=== PATIENT | female | born 1995 | race Caucasian/White ===

== ENCOUNTER 2016-08-03 21:16 | Emergency (ER) | payer OTHER ==
--- NOTE | 2016-08-03 22:16 | ED CLINICAL REPORT ---
Clinical Report - Physicians/Mid Levels [facility] [address] [place] [address] 08/03/2016 21:17 Patient: ANNA LARSEN Time Seen: 2156; initial patient contact, initial documentation, patient care assumed. Arrived- By private vehicle. Historian- patient and mother. HISTORY OF PRESENT ILLNESS Treated in emergency department (about 4 days ago). Chief Complaint: WOUND RECHECK. The patient has experienced pain since the procedure was performed. No antibiotics given or prescription given. 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 off skin off her finger, she went [facility], she admits to not reading her dc papers so she left her splint and bandage on til yesterday, and never did any wound care, washed it today, and put bandage and splint back on, but they only gave her enough bandages for 1 day, so she didn't do anything else, now she is worried that it might be infected or it is not healing, but when she took bandage off it looks lot better because she took pics of it, and hole that was there looks filled in and looks like skin is back, L middle finger, pt is R handed, denies any new injury/trauma, pt would like a few pain pills because it does still hurt). REVIEW OF SYSTEMS All systems otherwise negative, except as recorded above. PAST HISTORY See nurses notes. PROBLEMS: Vaginitis. Gastroesophageal Reflux Disease. Paronychia. Acute Lymphangitis. --21:25 Candi Mendez. Tetanus immunization status is up-to-date. SOCIAL HISTORY Never smoker. No alcohol use. No recent travel. Is a local resident. FAMILY HISTORY No significant family medical history. ADDITIONAL NOTES The nursing notes have been reviewed with agreement regarding the chief complaint, HPI, ROS, PMH and patient medications and allergies. PHYSICAL EXAM Vital Signs: 08/03/2016 21:28 BP: 109/84. HR: 83. RR: 15. O2 saturation: 99%. Temp: 97.6 F. Have been reviewed as normal and appear to be correct. Appearance: Alert. Oriented X3. No acute distress. Eyes: Pupils equal, round and reactive to light. EOM intact. Skin: Healing wound. No infection. (superficial skin avulsion to side and pad of L hand 3rd digit, no bleeding, no swelling, no erythema or streaking, no dc, healing wound). Extremities: Normal inspection. Extremities atraumatic. No lower extremity edema. Neuro, Vascular and Tendons: Sensation intact. No tendon injury. No vascular compromise. Neuro: Oriented X 3. No motor deficit. No sensory deficit. PROGRESS AND PROCEDURES Patient and mother counseled in person regarding the patient's stable condition and diagnosis. Differential Diagnosis: Other possible considerations: infected wound, skin avulsion. Above considerations are based on history and physical exam. Differential diagnosis was discussed with patient. Disposition: Discharged home in good and improved condition (22:15). Condition: good and stable. CLINICAL IMPRESSION Wound check INSTRUCTIONS Protect wound and keep wound area clean. Soak in warm soapy water twice daily. Apply neosporin twice daily. Warnings: GENERAL WARNINGS: Return or contact your physician immediately if your condition worsens or changes unexpectedly, if not improving as expected, or if other problems arise. Specifically return if problem worsens. Prescription Medications: Ultram 50 mg: take 1 orally every 6 hours as needed for pain. Dispense five (5). No refills. Follow-up: Follow up with your doctor in about three days as needed and for wound check. Call for an appointment. Summary of care provided to patient and family. Understanding of the discharge instructions verbalized by patient and parent. (Electronically signed by Janae Stauffer A.R.N.P. 08/03/2016 22:26)
--- NOTE | 2016-08-03 22:16 | ED ORDER SUMMARY ---
..... Patient: ANNA LARSEN OrderSheet [facility] VisitID: [id number] [address] [place] [address] 21y, F Registration Date/Time: 08/03/2016 ORDER SHEET Weight: 117.9 kg (stated) Allergies: None GENERAL ORDERS: Irrigate Wounds (wash wound please) (22:10 08/03/2016 Yaakov A.R.N.P.) (22:17 [facility]) MEDICATION ORDERS: IV FLUIDS: ORDER SHEET NOTES: [Electronically signed by Janae StaufferRLisaN.PLisa (22:26 08/03/2016)] [Electronically signed by Candi Mendez (22:28 08/03/2016)] [Electronically locked/signed by Candi Mendez (22:28 08/03/2016)]
--- NOTE | 2016-08-03 22:16 | ED ORDER SUMMARY ---
..... Patient: ANNA LARSEN OrderSheet [facility] VisitID: [id number] [address] [place] [address] 21y, F Registration Date/Time: 08/03/2016 ORDER SHEET Weight: 117.9 kg (stated) Allergies: None GENERAL ORDERS: Irrigate Wounds (wash wound please) (22:10 08/03/2016 Yaakov A.R.N.P.) (22:17 [facility]) MEDICATION ORDERS: IV FLUIDS: ORDER SHEET NOTES: [Electronically signed by Janae StaufferRLisaN.PLisa (22:26 08/03/2016)] [Electronically signed by Candi Mendez (22:28 08/03/2016)] [Electronically locked/signed by Candi Mendez (22:28 08/03/2016)]
--- NOTE | 2016-08-03 22:16 | ED CLINICAL REPORT ---
Clinical Report - Physicians/Mid Levels [facility] [address] [place] [address] 08/03/2016 21:17 Patient: ANNA LARSEN Time Seen: 2156; initial patient contact, initial documentation, patient care assumed. Arrived- By private vehicle. Historian- patient and mother. HISTORY OF PRESENT ILLNESS Treated in emergency department (about 4 days ago). Chief Complaint: WOUND RECHECK. The patient has experienced pain since the procedure was performed. No antibiotics given or prescription given. 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, she went [facility], she admits to not reading her dc papers so she left her splint and bandage on til yesterday, and never did any wound care, washed it today, and put bandage and splint back on, but they only gave her enough bandages for 1 day, so she didn't do anything else, now she is worried that it might be infected or it is not healing, but when she took bandage off it looks lot better because she took pics of it, and hole that was there looks filled in and looks like skin is back, L middle finger, pt is R handed, denies any new injury/trauma, pt would like a few pain pills because it does still hurt). REVIEW OF SYSTEMS All systems otherwise negative, except as recorded above. PAST HISTORY See nurses notes. PROBLEMS: Vaginitis. Gastroesophageal Reflux Disease. Paronychia. Acute Lymphangitis. --21:25 Candi Mendez. Tetanus immunization status is up-to-date. SOCIAL HISTORY Never smoker. No alcohol use. No recent travel. Is a local resident. FAMILY HISTORY No significant family medical history. ADDITIONAL NOTES The nursing notes have been reviewed with agreement regarding the chief complaint, HPI, ROS, PMH and patient medications and allergies. PHYSICAL EXAM Vital Signs: 08/03/2016 21:28 BP: 109/84. HR: 83. RR: 15. O2 saturation: 99%. Temp: 97.6 F. Have been reviewed as normal and appear to be correct. Appearance: Alert. Oriented X3. No acute distress. Eyes: Pupils equal, round and reactive to light. EOM intact. Skin: Healing wound. No infection. (superficial skin avulsion to side and pad of L hand 3rd digit, no bleeding, no swelling, no erythema or streaking, no dc, healing wound). Extremities: Normal inspection. Extremities atraumatic. No lower extremity edema. Neuro, Vascular and Tendons: Sensation intact. No tendon injury. No vascular compromise. Neuro: Oriented X 3. No motor deficit. No sensory deficit. PROGRESS AND PROCEDURES Patient and mother counseled in person regarding the patient's stable condition and diagnosis. Differential Diagnosis: Other possible considerations: infected wound, skin avulsion. Above considerations are based on history and physical exam. Differential diagnosis was discussed with patient. Disposition: Discharged home in good and improved condition (22:15). Condition: good and stable. CLINICAL IMPRESSION Wound check INSTRUCTIONS Protect wound and keep wound area clean. Soak in warm soapy water twice daily. Apply neosporin twice daily. Warnings: GENERAL WARNINGS: Return or contact your physician immediately if your condition worsens or changes unexpectedly, if not improving as expected, or if other problems arise. Specifically return if problem worsens. Prescription Medications: Ultram 50 mg: take 1 orally every 6 hours as needed for pain. Dispense five (5). No refills. Follow-up: Follow up with your doctor in about three days as needed and for wound check. Call for an appointment. Summary of care provided to patient and family. Understanding of the discharge instructions verbalized by patient and parent. (Electronically signed by Janae Stauffer A.R.N.P. 08/03/2016 22:26)
--- NOTE | 2016-08-03 22:16 | ED NURSING NOTES ---
Clinical Report - Nurses [facility] [place] [address] [place] [address] 08/03/2016 21:17 [id number] Triage time 21:Aug 03 2016. Acuity: LEVEL 5. Chief Complaint: INJURY TO LEFT HAND. 21:08/03/16. Alert. No acute distress. ( At worst 9/10). SEPSIS SCREEN: Sepsis Screen. Negative (no infection suspected/documented). AGA COMA SCORE: Aga Coma Scale: 15- eyes open spontaneously (4); best verbal response- oriented x 4 (5); best motor response- obeys commands (6). --21:28 Candi Mendez 21:28 08/03/16. BP: 109/84. HR: 83. RR: 15. O2 saturation: 99%. Temp: 97.6 F. Pain level now 3/10. --21:28 Candi Mendez 21:29 08/03/16. --21:29 Candi Mendez. Weight: 117.9 kg stated. Height/Length: 64 inches Per Patient. BMI: 44.6. --21:26 Candi Mendez. Medications None. --21:25 Candi Mendez. Allergies None. --21:25 Candi Mendez. History Arrived by private vehicle. Historian: patient. No primary care physician. This occurred (Sunday night). Occurred at work. ( Patient states that she cut a chunk out of her hand on Sunday. Reports that there is still bleeding and severe pain. Pt states that she was seen at [facility] on Sunday and is concerned for infection because it is "hot" and she states that she didn't get any antibiotics. Dressing has been changed once. Pt reports conflicting information between dc paperwork and what the doctor had told her.). No neck pain, weakness or numbness. 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 Took Tylenol. PAST MEDICAL HX: No history of diabetes mellitus, hypertension, heart disease or lung disease. Tetanus status: up-to-date. Last normal menstrual period was 3 weeks ago. SOCIAL HX: Never smoker. No alcohol use or drug use. FALL RISK ASSESSMENT: Fall risk assessment completed. No fall risk identified. NUTRITIONAL RISK ASSESSMENT: The nutritional risk assessment revealed no deficiencies. FUNCTIONAL ASSESSMENT: Functional assessment: no impairments noted. LEARNING NEEDS ASSESSMENT: The learning needs assessment revealed no barriers. SKIN INTEGRITY ASSESSMENT: Skin integrity risk assessment completed. No skin integrity risk identified. --:28 Candi Mendez Accompanied by mother. --:29 Candi Mendez. PROBLEMS: Vaginitis. Gastroesophageal Reflux Disease. Paronychia. Acute Lymphangitis. --:25 Candi Mendez. Assessment The patient states feels the same. --: Candi Mendez. Interventions ID band on patient. --: Candi Mendez. PHYSICAL ASSESSMENT :08/03/16. Ambulatory to room. GENERAL / NEURO / PSYCH: Oriented X 4. Alert. Appears in no acute distress. EXTREMITIES: Capillary refill is less than 2 seconds in the extremities. Extremity pulses are within normal limits. Extremities exhibit normal ROM. Neuro-vascular status intact to the extremity. Tip of left middle finger: laceration. SKIN: Skin intact. Skin is warm and dry. --: Candi Mendez. NURSING PROGRESS NOTES :08/03/16. The plan of care for this patient has been created. Extremity elevated. Reassurance given. Two patient identifiers checked. Call light placed in reach. Side rails up x 1. Bed placed in lowest position. Brakes of bed on. Patient ready for evaluation- chart flagged and ED physician and ORDER CHECKER notified. --: Candi Mendez. DISPOSITION / DISCHARGE Departure time: 22:15 Aug 03 2016. Condition at departure: improved. The goals identified in the patient's plan of care were met. No learning barriers present. Discharge instructions provided and reviewed with the patient and parent. Reviewed warnings (Patient verbalized awareness of warning s/sx listed in dc paperwork.). Reviewed medication(s) (Ultram). Treatments reviewed. Reviewed referrals. Patient verbalized understanding. Written instructions provided in Armenian. The patient was discharged by the nurse practitioner. She was discharged home and accompanied by parent. She left the Emergency Department ambulatory and via private vehicle. Parent driving. FALL RISK ASSESSMENT: Fall risk assessment completed. No fall risk identified. --:26 Candi Mendez 22:17 08/03/16. BP: deferred. HR: deferred. RR: deferred. O2 saturation: deferred. Temp: deferred. Pain level now deferred. --:26 Candi Mendez. Locked/Released at 08/03/2016 22:28 by Candi Mendez,
--- NOTE | 2016-08-03 22:16 | ED NURSING NOTES ---
Clinical Report - Nurses [facility] [place] [address] [address] 08/03/2016 21:17 [id number] Triage time 21:Aug 03 2016. Acuity: LEVEL 5. Chief Complaint: INJURY TO LEFT HAND. 21:08/03/16. Alert. No acute distress. ( At worst 9/10). SEPSIS SCREEN: Sepsis Screen. Negative (no infection suspected/documented). AGA COMA SCORE: Aga Coma Scale: 15- eyes open spontaneously (4); best verbal response- oriented x 4 (5); best motor response- obeys commands (6). --21:28 Candi Mendez 21:28 08/03/16. BP: 109/84. HR: 83. RR: 15. O2 saturation: 99%. Temp: 97.6 F. Pain level now 3/10. --21:28 Candi Mendez 21:29 08/03/16. --21:29 Candi Mendez. Weight: 117.9 kg stated. Height/Length: 64 inches Per Patient. BMI: 44.6. --21:26 Candi Mendez. Medications None. --21:25 Candi Mendez. Allergies None. --21:25 Candi Mendez. History Arrived by private vehicle. Historian: patient. No primary care physician. This occurred (Sunday night). Occurred at work. ( Patient states that she cut a chunk out of her hand on Sunday. Reports that there is still bleeding and severe pain. Pt states that she was seen at [facility] on Sunday and is concerned for infection because it is "hot" and she states that she didn't get any antibiotics. Dressing has been changed once. Pt reports conflicting information between dc paperwork and what the doctor had told her.). No neck pain, weakness or numbness. 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 Took Tylenol. PAST MEDICAL HX: No history of diabetes mellitus, hypertension, heart disease or lung disease. Tetanus status: up-to-date. Last normal menstrual period was 3 weeks ago. SOCIAL HX: Never smoker. No alcohol use or drug use. FALL RISK ASSESSMENT: Fall risk assessment completed. No fall risk identified. NUTRITIONAL RISK ASSESSMENT: The nutritional risk assessment revealed no deficiencies. FUNCTIONAL ASSESSMENT: Functional assessment: no impairments noted. LEARNING NEEDS ASSESSMENT: The learning needs assessment revealed no barriers. SKIN INTEGRITY ASSESSMENT: Skin integrity risk assessment completed. No skin integrity risk identified. --:28 Candi Mendez Accompanied by mother. --:29 Candi Mendez. PROBLEMS: Vaginitis. Gastroesophageal Reflux Disease. Paronychia. Acute Lymphangitis. --:25 Candi Mendez. Assessment The patient states feels the same. --: Candi Mendez. Interventions ID band on patient. --: Candi Mendez. PHYSICAL ASSESSMENT :08/03/16. Ambulatory to room. GENERAL / NEURO / PSYCH: Oriented X 4. Alert. Appears in no acute distress. EXTREMITIES: Capillary refill is less than 2 seconds in the extremities. Extremity pulses are within normal limits. Extremities exhibit normal ROM. Neuro-vascular status intact to the extremity. Tip of left middle finger: laceration. SKIN: Skin intact. Skin is warm and dry. --: Candi Mendez. NURSING PROGRESS NOTES :08/03/16. The plan of care for this patient has been created. Extremity elevated. Reassurance given. Two patient identifiers checked. Call light placed in reach. Side rails up x 1. Bed placed in lowest position. Brakes of bed on. Patient ready for evaluation- chart flagged and ED physician and BRICKLAYER TENDER notified. --: Candi Mendez. DISPOSITION / DISCHARGE Departure time: 22:15 Aug 03 2016. Condition at departure: improved. The goals identified in the patient's plan of care were met. No learning barriers present. Discharge instructions provided and reviewed with the patient and parent. Reviewed warnings (Patient verbalized awareness of warning s/sx listed in dc paperwork.). Reviewed medication(s) (Ultram). Treatments reviewed. Reviewed referrals. Patient verbalized understanding. Written instructions provided in Bermudian. The patient was discharged by the nurse practitioner. She was discharged home and accompanied by parent. She left the Emergency Department ambulatory and via private vehicle. Parent driving. FALL RISK ASSESSMENT: Fall risk assessment completed. No fall risk identified. --:26 Candi Mendez 22:17 08/03/16. BP: deferred. HR: deferred. RR: deferred. O2 saturation: deferred. Temp: deferred. Pain level now deferred. --:26 Candi Mendez. Locked/Released at 08/03/2016 22:28 by Candi Mendez,
--- NOTE | 2016-08-03 22:28 | ED MED RECONCILIATION SUMMARY ---
Patient: ANNA LARSEN Medication Reconciliation Report [facility] VisitID: [id number] [address] [place] [address] 21y, F Registration Date/Time: 08/03/2016 Weight: 117.9 kg Height/Length: 64 in. BMI: 44.6 ALLERGIES: None The patient's Home Medications are listed below: NONE. The source(s) of the original Home Medication information: Not obtained. The following Medications were given to the patient in the Emergency Department: None. The following Medications were prescribed to the patient: Ultram 50 mg: take 1 orally every 6 hours as needed for pain. Dispense five (5). No refills. -- Janae Stauffer A.R.N.P.
--- NOTE | 2016-08-03 22:28 | ED MAR SUMMARY ---
..... Medication Administration Record [facility] [address] [place], [place] [id number] Patient: ANNA LARSEN Visit ID: [id number] 21y, F Weight: 117.9 kg Height/Length: 64 in BMI: 44.6 ALLERGIES: None
--- NOTE | 2016-08-03 22:28 | ED DISCHARGE INSTRUCTIONS ---
Patient: ANNA LARSEN General Instructions [facility] VisitID: [id number] [place] [address] 21y, F Registration Date/Time: 08/03/2016 Wound check INSTRUCTIONS Protect wound and keep wound area clean. Soak in warm soapy water twice daily. Apply neosporin twice daily. Warnings: GENERAL WARNINGS: Return or contact your physician immediately if your condition worsens or changes unexpectedly, if not improving as expected, or if other problems arise. Specifically return if problem worsens. Prescription Medications: Ultram 50 mg: take 1 orally every 6 hours as needed for pain. Dispense five (5). No refills. Follow-up: Follow up with your doctor in about three days as needed and for wound check. Call for an appointment. Summary of care provided to patient and family. Understanding of the discharge instructions verbalized by patient and parent. ADDITIONAL INFORMATION Skin Tear (Skin Avulsion) A skin avulsion is a tearing of the top layer of skin. This occurs commonly in older persons with thin, fragile skin. It can happen after a fall or other injury. Home care The following guidelines will help you care for your wound at home: Keep the wound clean and dry. If a bandage was applied and it becomes wet or dirty, replace it. Otherwise, leave it in place for the first 24 hours, then change it once a day or as directed. Ifsutureswere used, clean the wound daily: After removing the bandage, wash the area with soap and water. Use a wet cotton swab to loosen and remove any blood or crust that forms. After cleaning, apply a thin layer of antibiotic ointment. This will keep the wound clean and make it easier to remove the stitches. Reapply a fresh bandage. You may remove the bandage to shower as usual after the first 24 hours, but do not soak the area in water (no tub baths or swimming) until the sutures are removed. Ifsurgical tape closureswere used, keep the area clean and dry. If it becomes wet, blot it dry with a towel. Ifskin adhesivewas used, do not scratch, rub or pick at the adhesive film. Do not place tape directly over the film.Do not apply liquid, ointment, or creams to the wound while the filmis in place. Do not clean the wound with peroxide and do not apply ointments. Avoid activities that cause heavy sweating until the film has fallen off. Protect the wound from prolonged exposure to sunlight or tanning lamps. You may shower as usual but do not soak the wound in water (no baths or swimming). You may use acetaminophen or ibuprofen to control pain, unless another pain medicine was prescribed.If you have chronic liver or kidney disease or ever had a stomach ulcer or GI bleeding, talk with your doctor before using these medicines. Follow-up care Most skin wounds heal within ten days. However, an infection may sometimes occur despite proper treatment. Therefore, check the wound for the warning signs listed below.Stitchesshould be removed within 714 days. If surgical tape closures were used, you may remove them yourself if they have not fallen off in 10 days. If skin glue was used, the film will fall off by itself in 510 days. When to seek medical care Get prompt medical attention if any of the following occur: Increasing pain in the wound Redness, swelling, or pus coming from the wound Fever of 100.4F (38C) or higher, or as directed by your health care provider Sutures or maureen come apart or fall out before your next appointment Surgical tape closures fall off within seven days, or the wound edges re-open Bleeding not controlled by direct pressure Tramadol Hydrochloride Oral tablet What is this medicine? TRAMADOL (TRA ma dole) is a pain reliever. It is used to treat moderate to severe pain in adults. How should I use this medicine? Take this medicine by mouth with a full glass of water. Follow the directions on the prescription label. If the medicine upsets your stomach, take it with food or milk. Do not take more medicine than you are told to take. Talk to your metallurgical technician regarding the use of this medicine in children. Special care may be needed. What side effects may I notice from receiving this medicine? Side effects that you should report to your doctor or health post acute care nurse as soon as possible: allergic reactions like skin rash, itching or hives, swelling of the face, lips, or tongue breathing difficulties, wheezing confusion itching light headedness or fainting spells redness, blistering, peeling or loosening of the skin, including inside the mouth seizures Side effects that usually do not require medical attention (report to your doctor or health post acute care nurse if they continue or are bothersome): constipation dizziness drowsiness headache nausea, vomiting What may interact with this medicine? Do not take this medicine with any of the following medications: MAOIs like Carbex, Eldepryl, Marplan, Nardil, and Parnate This medicine may also interact with the following medications: alcohol or medicines that contain alcohol antihistamines benzodiazepines bupropion carbamazepine or oxcarbazepine clozapine cyclobenzaprine digoxin furazolidone linezolid medicines for depression, anxiety, or psychotic disturbances medicines for migraine headache like almotriptan, eletriptan, frovatriptan, naratriptan, rizatriptan, sumatriptan, zolmitriptan medicines for pain like pentazocine, buprenorphine, butorphanol, meperidine, nalbuphine, and propoxyphene medicines for sleep muscle relaxants naltrexone phenobarbital phenothiazines like perphenazine, thioridazine, chlorpromazine, mesoridazine, fluphenazine, prochlorperazine, promazine, and trifluoperazine procarbazine warfarin What if I miss a dose? If you miss a dose, take it as soon as you can. If it is almost time for your next dose, take only that dose. Do not take double or extra doses. Where should I keep my medicine? Keep out of the reach of children. Store at room temperature between 15 and 30 degrees C (59 and 86 degrees F). Keep container tightly closed. Throw away any unused medicine after the expiration date. What should I tell my health care provider before I take this medicine? They need to know if you have any of these conditions: brain tumor depression drug abuse or addiction head injury if you frequently drink alcohol containing drinks kidney disease or trouble passing urine liver disease lung disease, asthma, or breathing problems seizures or epilepsy suicidal thoughts, plans, or attempt; a previous suicide attempt by you or a family member an unusual or allergic reaction to tramadol, codeine, other medicines, foods, dyes, or preservatives or trying to get breast-feeding What should I watch for while using this medicine? Tell your doctor or health post acute care nurse if your pain does not go away, if it gets worse, or if you have new or a different type of pain. You may develop tolerance to the medicine. Tolerance means that you will need a higher dose of the medicine for pain relief. Tolerance is normal and is expected if you take this medicine for a long time. Do not suddenly stop taking your medicine because you may develop a severe reaction. Your body becomes used to the medicine. This does NOT mean you are addicted. Addiction is a behavior related to getting and using a drug for a non-medical reason. If you have pain, you have a medical reason to take pain medicine. Your doctor will tell you how much medicine to take. If your doctor wants you to stop the medicine, the dose will be slowly lowered over time to avoid any side effects. You may get drowsy or dizzy. Do not drive, use machinery, or do anything that needs mental alertness until you know how this medicine affects you. Do not stand or sit up quickly, especially if you are an older patient. This reduces the risk of dizzy or fainting spells. Alcohol can increase or decrease the effects of this medicine. Avoid alcoholic drinks. You may have constipation. Try to have a bowel movement at least every 2 to 3 days. If you do not have a bowel movement for 3 days, call your doctor or health post acute care nurse. Your mouth may get dry. Chewing sugarless gum or sucking hard candy, and drinking plenty of water may help. Contact your doctor if the problem does not go away or is severe. You have been given the following additional information: Skin Avulsion Tramadol Hydrochloride Oral tablet (Electronically signed by Janae Stauffer A.R.N.P. 08/03/2016 22:26)
--- NOTE | 2016-08-03 22:28 | ED MAR SUMMARY ---
..... Medication Administration Record [facility] [address] [place], [place] [id number] Patient: ANNA LARSEN Visit ID: [id number] 21y, F Weight: 117.9 kg Height/Length: 64 in BMI: 44.6 ALLERGIES: None
--- NOTE | 2016-08-03 22:28 | ED MED RECONCILIATION SUMMARY ---
Patient: ANNA LARSEN Medication Reconciliation Report [facility] VisitID: [id number] [address] [place] [address] 21y, F Registration Date/Time: 08/03/2016 Weight: 117.9 kg Height/Length: 64 in. BMI: 44.6 ALLERGIES: None The patient's Home Medications are listed below: NONE. The source(s) of the original Home Medication information: Not obtained. The following Medications were given to the patient in the Emergency Department: None. The following Medications were prescribed to the patient: Ultram 50 mg: take 1 orally every 6 hours as needed for pain. Dispense five (5). No refills. -- Janae Stauffer A.R.N.P.
== END 2016-08-03 22:16 | disposition home or self-care (01) ==
LOC: ED SRH 21:16
DX: S61.203D Unspecified open wound of left middle finger without damage to nail, subsequent encounter (principal); K21.9 Gastro-esophageal reflux disease without esophagitis